=== PATIENT | female | born 1955 | race African-American/Black ===

== ENCOUNTER 2023-11-28 07:11 | Day surgery (SDC) | payer OTHER ==
[2023-11-23 12:23] VITALS: BMI 25.5
[2023-11-28] MEDS ORDERED: PROPOFOL 160 ML ONE (07:19)
[2023-11-28 08:59] VITALS: TEMP 97.3
[2023-11-28 09:01] VITALS: BP 132/76; PULSE 78; RESP 19
== END 2023-11-28 09:14 | disposition home or self-care (01) ==
LOC: FASU-ENDO 07:11
PROVIDERS: ATTEND Internal Medicine Gastroenterology
PROC: 0DBL8ZX Excision of Transverse Colon, Via Natural or Artificial Opening Endoscopic, Diagnostic (ICD-10-PCS; 2023-11-28)
PROC: 0DBK8ZX Excision of Ascending Colon, Via Natural or Artificial Opening Endoscopic, Diagnostic (ICD-10-PCS; principal; 2023-11-28 08:13)
DX: Z12.11 Encounter for screening for malignant neoplasm of colon (principal); D12.2 Benign neoplasm of ascending colon; K63.5 Polyp of colon
CPT/HCPCS: 88305-TC